=== PATIENT | male | born 1980 | race Caucasian/White ===

== ENCOUNTER → 2019-02-16 | Outpatient (CLI) | payer OTHER ==
--- NOTE | 2019-02-16 11:52 | XR ---
EXAMINATION TYPE: XR abdomen 2V DATE OF EXAM: 02/16/2019 11:47 AM CLINICAL HISTORY: Intermittent left-sided abdominal pain TECHNIQUE: Single upright image of the abdomen is obtained. COMPARISON: None. FINDINGS: Scattered gas is seen in nondilated small bowel loops. Gas and fecal material is seen in no ndilated colon. There is no visceromegaly, pneumoperitoneum, or abnormal calcification appreciated. T he lung bases are clear and the osseous structures are intact. Mild degenerative changes are seen of the femoral acetabular joints. IMPRESSION: Nonobstructive bowel gas pattern.
== END | disposition home or self-care (01) ==
LOC: RADXRYALE 11:28
PROVIDERS: ATTEND Physician Assistant Medical
DX: R14.3 Flatulence (principal); R10.10 Upper abdominal pain, unspecified
CPT/HCPCS: 74019